=== PATIENT | male | born 1965 | race Asian ===

== ENCOUNTER → 2016-11-26 | Outpatient (CLI) | payer BC ==
[~2016-11-26] MED LIST: AMLO-280 PO
== END | disposition home or self-care (01) ==
LOC: CFH 11:15
DX: E78.2 Mixed hyperlipidemia (principal); I10 Essential (primary) hypertension
CPT/HCPCS: 36415; 84436; 84481

== ENCOUNTER 2017-06-03 21:55 | Emergency (ER) | payer BC ==
[~2017-06-03] VITALS: Ht 165.1 cm; Wt 74.6 kg
[~2017-06-03 21:55] MED LIST changes: -AMLO-280 PO; +AMLO-302 PO
[2017-06-03] MEDS ORDERED: SODIUM CHLORIDE 0.9% 1,000 ML IV ONE (22:09)
[2017-06-03] MEDS ORDERED: NITROGLYCERIN OINT 2%, 1GM TP ONE ×2 (22:18→22:30)
[2017-06-03 22:27] LABS: HEMATOCRIT 47.5 % (39.2-51.8); HEMOGLOBIN 16.1 g/dL (13.7-18.0); WHITE BLOOD COUNT 8.4 x10^3/uL (3.4-10)
[2017-06-03] MEDS ORDERED: SODIUM CHLORIDE FLUSH 10ML SYR IVF ONE (22:30)
[2017-06-03 22:38] LABS: ASPARTATE AMINO TRANSFERASE 27 U/L (15-37); BLOOD UREA NITROGEN 14 mg/dL (7-18)
[2017-06-03 22:50] LABS: IS PT STATUS REG ER OR PRE ER? YES
[2017-06-03 23:09] VITALS: BP 141/74
== END 2017-06-03 23:31 | disposition home or self-care (01) ==
LOC: ED 22:27
DX: R07.2 Precordial pain (principal); I10 Essential (primary) hypertension; E78.5 Hyperlipidemia, unspecified; K21.9 Gastro-esophageal reflux disease without esophagitis; Z87.891 Personal history of nicotine dependence; Z90.49 Acquired absence of other specified parts of digestive tract
CPT/HCPCS: 36415; 71010; 80053; 83880; 84436; 84443; 84484; 85025; 93005; 99285

== ENCOUNTER → 2018-05-18 | Outpatient (CLI) | payer BC ==
[~2018-05-18] MED LIST changes: +AMLO-335 PO; +ASPI-496 PO; +RANI150T23 PO
== END | disposition home or self-care (01) ==
LOC: CFH 10:47
PROVIDERS: ATTEND Nurse Practitioner Primary Care
DX: R42 Dizziness and giddiness (principal)
CPT/HCPCS: 93880